=== PATIENT | male | born 1965 | race Hispanic/Latino ===

== ENCOUNTER 2018-05-19 05:47 | Day surgery (SDC) | payer OTHER ==
[2018-05-18 11:49] VITALS: BMI 38.3
--- NOTE | 2018-05-19 04:18 | HP ---
DATE OF ADMISSION: 05/19/2018 SHORT STAY HISTORY AND PHYSICAL HISTORY OF PRESENT ILLNESS: This is a 55-year-old male comes for a colonoscopy for colon cancer scre ening. The patient has no specific GI symptoms. His bowel movements are regular. There is no famil y history of colon cancer. The patient had a stool testing done and was found to have a paucity immu nochemical test. The patient has no specific GI symptoms. The patient comes for colonoscopy for col on cancer screening. ALLERGIES: None. SOCIAL HISTORY: The patient does not smoke, but drinks alcohol occasionally. MEDICAL ILLNESSES: 1. Hypertension. 2. Obesity. 3. Gout. PHYSICAL EXAMINATION: GENERAL: Patient appears comfortable. VITAL SIGNS: Pulse is 72, blood pressure 140/86. HEENT: Conjunctivae clear. CARDIOVASCULAR SYSTEM: First and second heart sounds normal. LUNGS: Clear to auscultation. ABDOMEN: Soft. No organomegaly. No tenderness. No masses. EXTREMITIES: Reveal no edema. ADMITTING DIAGNOSIS: A 53-year-old male comes for a colonoscopy for colon cancer screening. He also had a positive fit recently.
--- NOTE | 2018-05-19 08:34 | OP ---
DATE OF SERVICE: 05/19/2018 SURGEON: Swetha Cardozo M.D. OPERATIVE PROCEDURE: Colonoscopy with polypectomy, colonoscopy with biopsy. PREOPERATIVE DIAGNOSIS: This is a 53-year-old male with a positive FIT, undergoing colonoscopy for colon cancer screening. POSTOPERATIVE DIAGNOSES: 1. Large, broad based sessile polyp transverse colon, status post snare cautery with good hemostasis. 2. A small sessile polyp transverse colon status post snare cautery with good hemostasis. 3. A sessile polyp, hepatic flexure, status post snare cautery with good hemostasis. 4. A sessile polyp ascending colon, status post snare cautery with good hemostasis. 5. Sessile sigmoid colon polyp, status post polypectomy. 6. Thickened mucosa which appeared polypoid in the ascending colon, biopsied. PROCEDURE NOTE: The patient was placed on his left lateral position and was given sedation by Anesthesia Department. A rectal exam was done before the scope was advanced into the rectum. No lesion felt on rectal exam. A Pentax video colonoscope was introduced into the rectum advanced all the way into the cecum. The prep was good. The mucosa appeared normal. The epiglottis, ileocecal valve, cecum, no pathology seen. The area over the ascending colon which appears polypoid and thickened mucosa. Distal mass. He had a sessile polyp in ascending colon removed with snare cautery with good hemostasis. Another sessile polyp of hepatic flexure again this was removed without difficulty. There were 2 polyps over the transverse colon, one was very large and broad based, the other one was small. Both were removed with snare cautery with good hemostasis. The remainder transverse colon, splenic flexure, descending colon, no pathology seen. The sigmoid colon showed a sessile polyp. This was easily removed with snare cautery with good hemostasis. Retroflexion of scope in the rectum showed no pathology. DISCHARGE PLANNING: This is a 53-year-old male who came for colonoscopy because of positive fit and also for colon cancer screening, Unknown polypectomy before. DISCHARGE RECOMMENDATIONS: 1. The patient was advised to call me if he develops abdominal pain or hematochezia. 2. In the absence of any other symptoms he will come back to me next week. JOSE
[2018-05-19] MEDS ORDERED: Lidocaine 1% PF 5 ML VIAL ONE (14:25)
[2018-05-19] MEDS ORDERED: PROPOFOL 200 MG/20 ML VIAL ONE (14:25)
== END 2018-05-19 08:45 | disposition home or self-care (01) ==
LOC: SDC 05:47
PROVIDERS: ATTEND Internal Medicine Gastroenterology
PROC: 0DBN8ZX Excision of Sigmoid Colon, Via Natural or Artificial Opening Endoscopic, Diagnostic (ICD-10-PCS; principal; 2018-05-19)
PROC: 0DBL8ZX Excision of Transverse Colon, Via Natural or Artificial Opening Endoscopic, Diagnostic (ICD-10-PCS; principal; 2018-05-19)
PROC: 0DBK8ZX Excision of Ascending Colon, Via Natural or Artificial Opening Endoscopic, Diagnostic (ICD-10-PCS; principal; 2018-05-19)
DX: Z12.11 Encounter for screening for malignant neoplasm of colon (principal); D12.2 Benign neoplasm of ascending colon; D12.3 Benign neoplasm of transverse colon; K63.5 Polyp of colon; I10 Essential (primary) hypertension; E66.9 Obesity, unspecified; Z79.899 Other long term (current) drug therapy
CPT/HCPCS: 88305; J2001; J2704